=== PATIENT | female | born 1995 | race Caucasian/White ===

== ENCOUNTER 2018-03-07 19:47 | Emergency (ER) | payer BC ==
[2018-03-07 20:51] VITALS: BP 159/89
--- NOTE | 2018-03-07 21:14 | RAD ---
Indication: Right thumb pain. 3 views of the right thumb demonstrates no fracture. No other bone or joint abnormality is identified. IMPRESSION: No fracture of the right thumb is noted.
--- NOTE | 2018-03-07 21:15 | ED ---
Upper Extremity Pain - HPI Summary HPI Summary: 23 yr old female with the complaint of right thumb pain. About a week ago playing rugby and doesn't recall any specific injury, but after the rugby event had pain in right thumb. Pain is moderate. - History of Current Complaint Chief Complaint: UCUpperExtremity Stated Complaint: R THUMB INJ Time Seen by Provider: 03/07/18 20:50 Hx Last Menstrual Period: 2 weeks ago - Allergies/Home Medications Allergies/Adverse Reactions: Allergies Allergy/AdvReac Type Severity Reaction Status Date / Time No Known Allergies Allergy Verified 03/07/18 20:44 Home Medications: Home Medications Amphetamine MIXED SALT TAB* [Adderall TAB*] 20 mg BID 03/07/18 [History Confirmed 03/07/18] Cetirizine* [ZyrTEC 10 MG TAB*] 1 tab DAILY 03/07/18 [History Confirmed 03/07/18 ] PMH/Surg Hx/FS Hx/Imm Hx - Surgical History Surgery Procedure, Year, and Place: Ear surgeries- eardrum recon Infectious Disease History: No Infectious Disease History: Denies: Traveled Outside the [place] in Last 30 Days - Family History Known Family History: Positive: None - Social History Alcohol Use: Weekly Substance Use Type: Reports: None Smoking Status (MU): Never Smoked Tobacco Review of Systems Constitutional: Negative Positive: Other - right thumb pain All Other Systems Reviewed And Are Negative: Yes Physical Exam Triage Information Reviewed: Yes Vital Signs On Initial Exam: Initial Vitals Temp Pulse Resp BP Pulse Ox 98.7 F 96 16 159/89 96 03/07/18 20:45 03/07/18 20:45 03/07/18 20:45 03/07/18 20:45 03/07/18 20:45 Vital Signs Reviewed: Yes Appearance: Positive: Well-Appearing, No Pain Distress Skin: Positive: Warm, Skin Color Reflects Adequate Perfusion Head/Face: Positive: Normal Head/Face Inspection Eyes: Positive: EOMI Respiratory/Lung Sounds: Positive: Other - normal effort Cardiovascular: Positive: Pulses are Symmetrical in both Upper and Lower Extremities Abdomen Description: Negative: Distended Musculoskeletal: Positive: Other - right thumb without gross deformity. no erythema, no joint effuison. Neurological: Positive: Sensory/Motor Intact, Alert, Oriented to Person Place, Time Psychiatric: Positive: Normal - [place]ma Coma Scale Best Eye Response: 4 - Spontaneous Best Motor Response: 6 - Obeys Commands Best Verbal Response: 5 - Oriented Coma Scale Total: 15 Diagnostics - Vital Signs Vital Signs Temp Pulse Resp BP Pulse Ox 03/07/18 20:45 98.7 F 96 16 159/89 96 - Laboratory Lab Statement: Any lab studies that have been ordered have been reviewed, and results considered in the medical decision making process. - Radiology right thumb Xray Interpretation: No Acute Changes Radiology Interpretation Completed By: Radiologist Course/Dx - Course Course Of Treatment: 23 yr old female with thumb pain. No ligamentous instability. No gross deformity. - Diagnoses Provider Diagnoses: Sprain of hand, thumb, right, Hypertension Discharge - Sign-Out/Discharge Documenting (check all that apply): Discharge/Admit/Transfer - Discharge Plan Condition: Good Disposition: HOME Patient Education Materials: Finger Sprain (ED), Hypertension (ED) Referrals: Non Staff,Doctor [Primary Care Provider] - [facility] [Outside] - Billing Disposition and Condition Condition: GOOD Disposition: HOME
== END 2018-03-07 21:35 | disposition home or self-care (01) ==
LOC: UCCORT 19:47
DX: S63.601A Unspecified sprain of right thumb, initial encounter (principal); X58.XXXA Exposure to other specified factors, initial encounter; Y93.63 Activity, rugby; Y92.9 Unspecified place or not applicable; I10 Essential (primary) hypertension
CPT/HCPCS: 99201; G0463

== ENCOUNTER 2019-03-16 18:14 | Emergency (ER) | payer BC ==
[2019-03-16 18:36] VITALS: BP 149/92
--- NOTE | 2019-03-16 19:03 | UC ---
Ear Complaint HPI - HPI Summary HPI Summary: Pt presents for evaluation of pain and drainge left ear. Pt with h/o recurrent ear infection and has had surgery x 3 for perforated ear drum. Pt uses hearing assist device in left ear. + yellow drainag x 2 days. + discomfort. No fever, chills. no sore throat, sinus pain not med reviwed - History of Current Complaint Chief Complaint: UCEar Stated Complaint: LT EAR COMPLAINT Time Seen by Provider: 03/16/19 18:31 Hx Obtained From: Patient Hx Last Menstrual Period: unsure- last month maybe ?: No Onset/Duration: Gradual Onset Pain Intensity: 2 - Allergies/Home Medications Allergies/Adverse Reactions: Allergies Allergy/AdvReac Type Severity Reaction Status Date / Time No Known Allergies Allergy Verified 03/16/19 18:31 Home Medications: Home Medications traZODone TAB* [Desyrel TAB*] 1 tab QPM 03/16/19 [History Confirmed 03/16/19] PMH/Surg Hx/FS Hx/Imm Hx Previously Healthy: Yes - Surgical History Surgical History: Yes Surgery Procedure, Year, and Place: Ear surgeries x2- eardrum recon, 2017 - Family History Known Family History: Positive: Non-Contributory - Social History Lives: With Family Alcohol Use: Occasionally Substance Use Type: None Smoking Status (MU): Never Smoked Tobacco Review of Systems All Other Systems Reviewed And Are Negative: Yes Constitutional: Positive: Negative Skin: Positive: Negative Eyes: Positive: Negative ENT: Positive: Ear Ache Physical Exam - Summary Physical Exam Summary: Vital Signs Reviewed: Yes A+Ox3, no distress Eyes: Conjunctiva Clear, DONNA. EOM intact and full ENT: Hearing grossly normal right TM wnl left TM appears intact, no obvious perforation, + scar tissue, + erythema, fluid, no matoid pain mmoist, uvula midline, no exudate, no erythema Neck: Positive: Supple Respiratory: Positive: No respiratory distress, No accessory muscle use + CTA throughout no w/r Cardiovascular: RRR nl s1, s2 no m/r CBT <2 sec abd soft + BS nt/nd no guarding, no distension Musculoskeletal Exam: SIMS x 4 without difficulty Strength Intact, ROM Intact Neurological: Positive: Alert, + sensation throughout Psychological: Positive: Normal Response To Family Skin: Positive: no rash, no ecchymosis Triage Information Reviewed: Yes Vital Signs: Initial Vital Signs Temp 97.1 F 03/16/19 18:32 Pulse 84 03/16/19 18:32 Resp 17 03/16/19 18:32 BP 149/92 03/16/19 18:32 Pulse Ox 99 03/16/19 18:32 Ear Complaint Course/Dx - Course Course Of Treatment: pt with progressive left ear pain and report of drainage. Pt with h/o perforation, uses assist device on exam left OM no visible perforatio will provide oral and topical tx - uses foreign body in canal motrin/apap return precautions pt comfortable and in agreement with plan elevated BP - recommend f/u with pcp - Differential Dx/Diagnosis Provider Diagnosis: Otitis media Discharge - Sign-Out/Discharge Documenting (check all that apply): Patient Departure All imaging exams completed and their final reports reviewed: No Studies - Discharge Plan Condition: Stable Disposition: HOME Prescriptions: Amoxicillin PO (*) [Amoxicillin 875 MG (*)] 875 mg PO BID #20 tab Ciproflox/Dexameth OTIC.SUSP* [Ciprodex OTIC.SUSP*] 2 drop LEFT EAR Q6HR #1 btl Patient Education Materials: Otitis Externa (ED), Ear Infection (ED) Referrals: [facility] [Outside] No Primary Care Phys,NOPCP [Primary Care Provider] - Additional Instructions: Take antibiotics as prescriptions (tablets and drops) as prescribed Okay to alternate ibuprofen (Advil. Motrin) and Tylenol every 3hours as needed for pain Stay well hydrated Contact your doctor or return with questions or concerns - Billing Disposition and Condition Condition: STABLE Disposition: Home
== END 2019-03-16 19:09 | disposition home or self-care (01) ==
LOC: UCCORT 18:14
DX: H66.92 Otitis media, unspecified, left ear (principal)
CPT/HCPCS: 99212; G0463